=== PATIENT | male | born 1980 | race Caucasian/White ===

== ENCOUNTER 2016-11-05 08:12 | Emergency (ER) | payer OTHER ==
[~2016-11-05] VITALS: Ht 180.3 cm; Wt 149.5 kg
[~2016-11-05 08:12] MED LIST: ACET325T33 PO; ALBU8.5H3 INH; BACTDS PO; CEPH-443 PO; FLOV110 IH; HYDR-3498 PO; HYDR-902 PO; IBUP-1542 PO; METF500T4 PO; ZOF8 PO
[2016-11-05 08:21] VITALS: Ht 180.3 cm; Wt 149.5 kg
[2016-11-05] MEDS ORDERED: ALBUTEROL 0.5% (NEB) 2.5 MG/0.5 ML AMP NEB STA (08:57)
[2016-11-05] MEDS ORDERED: ACETAMINOPHEN 500 MG TAB PO STA (08:57)
--- NOTE | 2016-11-05 10:07 | RADRPT ---
PROCEDURE: XR Chest. CLINICAL INDICATION: cough TECHNIQUE: PA and lateral views of the chest were obtained COMPARISON: 11/26/13 FINDINGS: The heart and mediastinum are within normal limits. There is mild left lower lobe infiltrate and possible small left pleural effusion. There is no pneumothorax. The bones and soft tissues are unremarkable. RPTAT: AA IMPRESSION: Mild left lower lobe infiltrate and possible small left pleural effusion. .Eduin Aquino MD, MD Date Time Electronically viewed and signed by .Eduin Aquino MD, MD on 11/05/2016 10:06 .S/
[2016-11-05] MEDS ORDERED: LEVOFLOXACIN 750 MG TABLET PO STA (10:15)
--- NOTE | 2016-11-05 10:20 | ERA ---
ER Documentation Chief Complaint Date/Time DATE: 11/05/16 TIME: 10:18 Chief Complaint INTERMITTENT LT SIDE RIB PAIN EXACERBATED DEEP INSPIRATION, COUGH X2 WKS HPI This is a 36-year-old male with a history of diabetes type 2 and asthma presenting to the emergency room complaining of left sided rib pain that is increased with deep inspiration since yesterday. Patient rates the pain 9 out of 10. Patient also complains of cough for the past 2 weeks however he states that it has been getting better. Patient states that takes Advair twice a day with albuterol as needed however his last dose of albuterol was at 10 AM and Advair was at 7 AM. Patient admits to having chills and nausea, he had one episode of vomiting. ROS All systems reviewed and are negative except as per history of present illness. Medications Home Meds Active Scripts Acetaminophen* (Tylenol*) 325 Mg Tablet, 2 TAB PO Q4 Y for PAIN AND OR ELEVATED TEMP, #30 TAB Prov:LEONEL EPPERSONC 11/05/16 Levofloxacin* (Levaquin*) 750 Mg Tablet, 750 MG PO DAILY for 4 Days, TAB Prov:LEONEL EPPERSONC 11/05/16 Hydrocodone/Acetaminophen (Labolt 10-325 Tablet) 1 Each Tablet, 1 TAB PO Q6H Y for PAIN, #15 TAB Prov:DON KHOURYC 07/26/16 Acetaminophen* (Tylenol*) 325 Mg Tablet, 2 TAB PO Q6 Y for PAIN AND OR ELEVATED TEMP, #20 TAB Prov:Kayleigh KnoxC 07/25/16 Sulfamethoxazole-Trimethoprim* (Bactrim* DS) 800-160 Mg Tab, 1 TAB PO BID for 5 Days, #10 TAB Prov:Kayleigh KnoxC 07/25/16 Cephalexin* (Keflex*) 500 Mg Capsule, 500 MG PO QID for 5 Days, CAP Prov:Kayleigh Knox PA-C 07/25/16 Hydrocodone/Acetaminophen (Labolt 10-325 Tablet) 1 Each Tablet, 1 TAB PO Q6H Y for PAIN, #10 TAB Prov:Kayleigh Knox PA-C 07/25/16 Metformin* (Glucophage*) 500 Mg Tab, 500 MG PO DAILY, #30 TAB Prov:ELVIN SHETTY MD 03/09/16 Ondansetron Hcl* (Zofran* ODT) 8 mg -ODT Tab.disper, 8 MG PO Q6H Y for NAUSEA AND OR VOMITING, #10 TAB Prov:ELVIN SHETTY MD 03/09/16 Ibuprofen* (Motrin*) 600 Mg Tab, 600 MG PO Q6H Y for PAIN, #20 TAB Prov:ELVIN SHETTY MD 03/09/16 Hydrocodone Bit-Acetaminophen* (Labolt*) 5-325 Mg Tab, 1 TAB PO Q6 Y for PAIN, # 16 TAB Prov:ELVIN SHETTY MD 03/09/16 Reported Medications Fluticasone Propionate* (Flovent* HFA 110) 12 Gm Inha, 1 PUFF IH BID, INH 03/22/14 Albuterol Sulfate* (Proair HFA*) 8.5 Gm Hfa.aer.ad, 1 PUFF INH PRN 11/26/13 Allergies Allergies: Coded Allergies: No Known Allergy (Unverified , 07/24/16) PMhx/Soc History of Surgery: Yes (cholecystectomy) Anesthesia Reaction: No Hx Neurological Disorder: No Hx Respiratory Disorders: Yes (asthma) Hx Cardiac Disorders: Yes (dm) Hx Psychiatric Problems: No Hx Miscellaneous Medical Probl: Yes (kidney stone) Hx Alcohol Use: Yes (occassional) Hx Substance Use: No Hx Tobacco Use: No Physical Exam Vitals Vital Signs Date Time Temp Pulse Resp B/P Pulse Ox O2 Delivery O2 Flow Rate FiO2 11/05/16 10:18 89 91 Room Air 11/05/16 09:19 87 17 94 21 11/05/16 08:21 100.0 91 20 140/83 91 Physical Exam GENERAL: well-developed/well-nourished, in no apparent distress, non-toxic appearing obese HEAD: NC/AT, no swelling noted in frontal or maxillary areas EARS: bilateral tympanic membrane is intact without erythema or effusion NARES: nares patent, rhinorrhea and congested THROAT: oropharynx erythematous without exudates, no tonsil enlargement, post nasal drip EYES: Conjunctiva normal NECK: Supple, no lymphadenopathy PULM: limited exam due to patient's habitus. Decreased breath sounds throughout , left greater than right CV: Normal S1S2, RRR, good capillary refill GI: Soft, non-distended, normal bowel sounds, non-tender BACK: No midline tenderness, no masses EXT No clubbing, cyanosis, or edema NEURO: Alert and Orientated SKIN: Intact, normal turgor PSYCH: Normal mood and mentation Results 24 hrs Current Medications Medications (Trade) Dose Ordered Sig/Tanvir Route PRN Reason Start Time Stop Time Status Last Admin Dose Admin Acetaminophen (Tylenol Tab) 1,000 mg ONCE STAT PO 11/05/16 08:57 11/05/16 09:00 DC 11/05/16 09:19 Albuterol (Proventil 0.5% (Neb)) 5 mg ONCE STAT NEB 11/05/16 08:57 11/05/16 09:01 DC 11/05/16 09:18 Levofloxacin (Levaquin) 750 mg ONCE STAT PO 11/05/16 10:15 11/05/16 10:17 DC 11/05/16 10:39 Ketorolac Tromethamine (Toradol) 30 mg ONCE STAT IM 11/05/16 11:53 11/05/16 11:54 DC 11/05/16 11:57 Procedures/MDM This is a 36-year-old male with a history of diabetes type 2 and asthma presenting to the emergency room complaining of left-sided rib pain that increased with deep inhalation with one episode of vomiting that started since last night, likely due to pneumonia. Patient also admitted to cough for the past 2 weeks, stating that it has been getting better. On examination patient presented saturating at 91% with a temp of 100 patient did have evidence of decreased breath sounds, he did not have any evidence of respiratory distress. It appears that he was breathing well on room air. Chest x-ray did show evidence of mild infiltrates in the left lower lobe with a possible small left pleural effusion. RT was consulted patient was given a breathing treatment with albuterol 5 mg and placed on monitors. Patient received first dose of Levaquin 750 mg in the ER and 1000 mg of Tylenol. I have reassessed patient and he was doing better. Patient's saturation levels were at 93% I have consulted my supervising physician regarding this case and states that he is suitable to be discharged home with antibiotics. Patient is speaking clearly and he appears well. He is in no distress. I have given patient strict precautions to return to the emergency room for any worsening signs or symptoms are not improving as expected. Patient agrees and understands this plan. Prescription Levaquin and Tylenol was provided. CXR: The heart and mediastinum are within normal limits. There is mild left lower lobe infiltrate and possible small left pleural effusion. There is no pneumothorax. The bones and soft tissues are unremarkable Departure Diagnosis: Primary Impression: Pneumonia Qualified Code: J18.9 - Pneumonia of left lower lobe due to infectious organism Additional Impression: Pleural effusion Condition: LEONEL Henriquez PA-C Nov 05, 2016 10:20
[2016-11-05] MEDS ORDERED: KETOROLAC 30 MG INJ IM STA (11:53)
[2016-11-05] MEDS ORDERED: LEVO750T25 PO (11:57)
[2016-11-05] MEDS ORDERED: ACET325T33 PO (11:57)
[2016-11-05 12:22] VITALS: PULSE 89
== END 2016-11-05 12:23 | disposition home or self-care (01) ==
LOC: FTE 08:12
DX: J18.9 Pneumonia, unspecified organism (principal); J90 Pleural effusion, not elsewhere classified; E11.9 Type 2 diabetes mellitus without complications; J45.909 Unspecified asthma, uncomplicated; Z79.84 Long term (current) use of oral hypoglycemic drugs
CPT/HCPCS: 71020; 94664; 96372; J1885; Z7502; Z7610